=== PATIENT | male | born 1970 | race Two or more races ===

== ENCOUNTER 2017-07-04 12:00 | Emergency (ER) | payer SELFPAY ==
[~2017-07-04] VITALS: Ht 170.2 cm; Wt 117.9 kg
[2017-07-04 12:52] VITALS: BP 158/96
[2017-07-04] MEDS ORDERED: KETOROLAC TROMETH 60MG/2ML VIAL IM ONE (13:15)
== END 2017-07-04 13:31 | disposition home or self-care (01) ==
LOC: ER 12:00
DX: S52.502A Unspecified fracture of the lower end of left radius, initial encounter for closed fracture (principal); W08.XXXA Fall from other furniture, initial encounter; Y93.89 Activity, other specified; Y92.009 Unspecified place in unspecified non-institutional (private) residence as the place of occurrence of the external cause; Y99.8 Other external cause status
CPT/HCPCS: 29125; 73110; 99284; J1885

== ENCOUNTER 2025-03-03 08:15 | Day surgery (SDC) | payer SELFPAY ==
[2025-03-01 14:04] LABS: Basophils # (auto) 0.1 10 ^3/uL (0-0.2); Basophils % (auto) 1.2 % (0.0-2.0); Eosinophils # (auto) 0.1 10 ^3/uL (0-0.8); Eosinophils % (auto) 1.2 % (0.0-7.0); Hematocrit 44.6 % (41.0-53.0); Hemoglobin 15.3 g/dL (13.5-17.5); Lymphocytes # (auto) 2.1 10 ^3/uL (0.4-5.4); Lymphocytes % (auto) 25.5 % (10.0-50.0); Mean Corpuscular Hemoglobin 28.1 pg (28.0-32.0); Mean Corpuscular Hgb Conc. 34.2 g/dL (32.0-36.0); Mean Corpuscular Volume 82.1 fL (80.0-100.0); Monocytes # (auto) 0.5 10 ^3/uL (0-1.3); Monocytes % (auto) 6.5 % (0.0-12.0); Neutrophils # (auto) 5.4 10 ^3/uL (1.6-8.6); Neutrophils % (auto) 65.6 % (37.0-80.0); Nucleated Red Blood Cells % 0.1 %; Platelet Count (auto) 246 10^3/uL (140-450); Red Blood Cells 5.44 10^6/uL (4.5-5.90); Red Cell Distribution Width 14.1 % (11.8-14.3); White Blood Cell 8.2 10^3/uL (4.4-10.8)
[2025-03-01 14:23] LABS: INR 1.11 (0.9-1.15); Partial Thromboplastin Time 27.4 SEC (24.5-34.5); Prothrombin Time 11.6 sec (9.3-11.8)
[2025-03-01 14:45] LABS: Alanine Aminotransferase 34 U/L (7-40); Alkaline Phosphatase 78 U/L (46-116); Anion Gap 9 (5-15); Aspartate Aminotransferase 27 U/L (13-40); BUN/Creatinine Ratio 11.1 (10.0-20.0); Bilirubin, Total 0.8 mg/dL (0.2-1.0); Blood Urea Nitrogen 11 mg/dL (9-23); Calcium 10.1 mg/dL (8.7-10.4); Carbon Dioxide 27 mmol/L (20-31); Chloride 103 mmol/L (98-107); Glucose 121 mg/dL (74-106); Sodium 139 mmol/L (136-145); Total Protein 8.3 g/dL (5.7-8.2)
[~2025-03-03] VITALS: Ht 170.2 cm; Wt 99.8 kg
[~2025-03-03 08:15] MED LIST: AMLO1TAB21 PO; ATOR10TA52 PO
[2025-03-03] MEDS: fentaNYL CITRATE 100 MCG/2 ML VL ONE (12:33)
[2025-03-03] MEDS: MIDAZOLAM HCL 2MG/2ML 2ml VIAL (1mg/ml) ONE (12:33)
[2025-03-03 12:55] VITALS: PULSE 74; RESP 13; TEMP 98.2
--- NOTE | 2025-03-03 13:01 | DVHNC2 ---
Procedure - DATE OF PROCEDURE: March 03, 2025 SURGEON: JOSE JULIO MD REFERRING PROVIDER: [facility] PROCEDURE PERFORMED: 1. Colonoscopy with moderate sedation 2. Colonoscopy with cold snare polypectomy PRE-PROCEDURE DIAGNOSIS: 1. Colon cancer screening POST-PROCEDURE DIAGNOSIS: 1. Three colon polyps in the right colon 2. Internal hemorrhoids INDICATIONS FOR PROCEDURE: The patient is a 54-year-old male presents for outpatient colonoscopy for screening. MEDICATIONS USED: 3 mg of Versed IV and 50 mcg IV given in incremental doses DETAILS OF THE PROCEDURE: Informed consent was obtained after risks, benefits, and alternatives, were discussed at length with the patient. The patient gave consent to the procedure as well as the medication used for sedation. The patient was placed in the left lateral decubitus position. Digital rectal exam showed internal hemorrhoids and external hemorrhoids. An Olympus variable torsi on pediatric colonoscope was inserted into the rectum and advanced to the cecum. The cecum was identified by the ileocecal valve and the appendiceal orifice. The scope was then withdrawn. The prep was good with only small amounts of liquid stool. The patient had three polyps in the right colon. One in the cecal base and two in the ascending colon measuring between 5 mm and 1 cm removed with cold snare polypectomy. There was no other polyps, masses, strictures or arteriovenous malformations 6 minutes of withdrawal time was noted. Retroflexion showed internal hemorrhoids. The patient tolerated the procedure well. [place] BOWEL PREP SCORE: 8 COLONOSCOPY START TIME: 1238 CECUM TIME: 1243 COLONOSCOPY END TIME: 1254 IMPRESSION: 1. 3 colon polyps in the right colon removed with cold snare polypectomy 2. 2+ internal hemorrhoids RECOMMENDATIONS: 1. Follow up in GI clinic for procedure results 2. High-fiber diet 3. Repeat colonoscopy in 3 years unless otherwise indicated 4. Medical management of the hemorrhoids I WOULD LIKE TO THANK [facility] FOR THIS REFERRAL JOSE JULIO MD Mar 03, 2025 13:00
[2025-03-03 13:25] VITALS: BP 146/91; PULSE 69; RESP 15; O2SAT 98
== END 2025-03-03 13:35 | disposition home or self-care (01) ==
LOC: GI 08:15
PROVIDERS: ATTEND Specialist
DX: Z12.11 Encounter for screening for malignant neoplasm of colon (principal); D12.2 Benign neoplasm of ascending colon; D12.0 Benign neoplasm of cecum; K64.8 Other hemorrhoids; G47.30 Sleep apnea, unspecified; E78.00 Pure hypercholesterolemia, unspecified; I10 Essential (primary) hypertension; Z98.890 Other specified postprocedural states; Z79.899 Other long term (current) drug therapy
CPT/HCPCS: 36415; 45385; 80053; 85025; 85610; 85730; 88305; J2250; J3010; 43239; 99152